=== PATIENT | male | born 1970 | race American Indian/Alaskan Native ===

== ENCOUNTER 2020-01-01 08:44 | Day surgery (SDC) | payer OTHER ==
[2020-01-01] MEDS ORDERED: ACETAMINOPHEN 500 MG TAB PO NR (09:39)
[2020-01-01] MEDS ORDERED: ONDANSETRON 4 MG/2 ML INJ IV PRN (09:39)
[2020-01-01] MEDS ORDERED: MAGNESIUM OXIDE 400 MG TAB PO NR (09:39)
[2020-01-01] MEDS ORDERED: HYDROmorphone 1 MG/1 ML INJ IV PRN (09:39)
[2020-01-01] MEDS ORDERED: CELECOXIB 200 MG CAP PO NR (10:00)
[2020-01-01] MEDS ORDERED: MIDAZOLAM 2 MG/2 ML INJ IV NR (10:00)
[2020-01-01] MEDS ORDERED: GABAPENTIN 300 MG CAP PO NR (10:00)
[2020-01-01] MEDS ORDERED: LACTATED RINGERS 1,000 ML IV SCH (10:00)
[2020-01-01] MEDS ORDERED: ceFAZolin/STERILE WATER 2 GM/20 ML SYRINGE IV NR (10:00)
[2020-01-01] MEDS ORDERED: BUPIVACAINE/PF (0.25%) 2.5 MG/ML 30 ML VIAL INFILTRATI ONE ×2 (12:25→13:11)
[2020-01-01] MEDS ORDERED: LIDOCAINE (1%) 10 MG/1 ML VIAL 20 ML MDV ONE (12:25)
[2020-01-01] MEDS ORDERED: fentaNYL 100 MCG/2 ML INJ ONE ×2 (12:48→13:57)
[2020-01-01] MEDS ORDERED: SUCCINYLCHOLINE CHLORIDE 200 MG/10 ML INJ MDV ONE (12:48)
[2020-01-01] MEDS ORDERED: propofoL 200 MG/20 ML VIAL IV ONE (12:48)
[2020-01-01] MEDS ORDERED: ONDANSETRON 4 MG/2 ML INJ ONE (12:48)
[2020-01-01] MEDS ORDERED: PHENYLEPHRINE/NS 1,000 MCG/10 ML SYRINGE (OR USE) IV ONE (12:48)
[2020-01-01] MEDS ORDERED: dexAMETHasone 20 MG/5 ML VIAL ONE (12:48)
[2020-01-01] MEDS ORDERED: GLYCOPYRROLATE 0.4 MG/2 ML INJ ONE (12:48)
[2020-01-01] MEDS ORDERED: ROCURONIUM 50 MG/5 ML INJ IV ONE (12:48)
[2020-01-01] MEDS ORDERED: LIDOCAINE MPF (2%) 20 MG/1 ML VIAL 5 ML ONE (12:48)
[2020-01-01] MEDS ORDERED: NEOSTIGMINE 10MG/10 ML INJ MDV ONE (12:48)
[2020-01-01] MEDS ORDERED: SODIUM CHLORIDE 0.9% IRR 1,500 ML BOTTLE IR ONE (13:12)
[2020-01-01] MEDS ORDERED: LIDOCAINE (1%) 10 MG/1 ML VIAL 20 ML MDV INFILTRATI ONE (13:12)
--- NOTE | 2020-01-01 14:18 | Short Stay Summary ---
Short Stay Documentation Date of service: 01/01/20 - History Principal diagnosis: umblical hernia H&P: obtained from office - Allergies and Medications Current Medications: Allergies No Known Allergies Allergy (Verified 12/26/19 12:40) Home Medications Medication Instructions Recorded Confirmed Last Taken Type No Known Home Medications [No 12/26/19 12/26/19 Unknown History Reported Home Medications] Active Medications Acetaminophen (Tylenol) 1,000 mg PO ONCE NR Stop: 01/01/20 18:00 Last Admin: 01/01/20 10:10 Dose: 1,000 mg Documented by: Celecoxib (Celebrex) 400 mg PO PREOP NR Stop: 01/01/20 23:00 Last Admin: 01/01/20 10:10 Dose: 400 mg Documented by: Gabapentin (Gabapentin) 600 mg PO PREOP NR Stop: 01/01/20 23:00 Last Admin: 01/01/20 10:10 Dose: 600 mg Documented by: Hydromorphone HCl (Dilaudid) 0.25 mg IV Q10MIN PRN PRN Reason: Pain, Moderate (4-6) Stop: 01/01/20 23:00 Hydromorphone HCl (Dilaudid) 0.5 mg IV Q10MIN PRN PRN Reason: Pain , Severe (7-10) Stop: 01/01/20 23:00 Lactated Ringer's (Lactated Ringers) 1,000 mls @ 125 mls/hr IV DIRECT NICOLAS Last Admin: 01/01/20 10:15 Dose: 125 mls/hr Documented by: Magnesium Oxide (Mag-Ox) 400 mg PO ONCE NR Stop: 01/01/20 22:00 Last Admin: 01/01/20 10:10 Dose: 400 mg Documented by: Midazolam HCl (Versed) 2 mg IV PREOP NR Stop: 01/01/20 23:59 Last Admin: 01/01/20 10:16 Dose: 2 mg Documented by: Ondansetron HCl (Zofran) 4 mg IV ONCE PRN PRN Reason: Nausea And Vomiting Stop: 01/01/20 22:00 - Brief post op/procedure progress note Date of procedure: 01/01/20 Pre-op diagnosis: umbilical hernia Post-op diagnosis: same Procedure: open umbilical hernia repair with mesh Anesthesia: GETA, local Findings: Moderate amount of incarcerated preperitoneal fat in 1 cm hernia defect Surgeon: ANI GIVENS Estimated blood loss: minimal Pathology: none Condition: stable - Hospital course Hospital course: Pt observed in PACU and discharged to home in stable condition. - Disposition Condition at discharge: Good Short Stay Discharge Plan Activity: other (no heavy lifting) Diet: regular Wound: open to air, per your surgeon's advice Additional Instructions: Ok to remove abdominal binder when showering and sleeping. See additional printed discharge instructions. Follow up with: STEVE KIRKPATRICK MD [Primary Care Provider] - 7 Days ANI GIVENS DO [Staff Physician] - 14 Days Prescriptions: Ibuprofen [Motrin 800 MG tab] 800 mg PO Q8HR #30 tablet HYDROcodone/APAP 5-325 [Lititz 5/325] 1 each PO Q6HR PRN #20 tablet PRN Reason: Pain , Severe (7-10)
[2020-01-01] MEDS ORDERED: HYDROcodone/ACETAMINOPHEN 5-325 MG TAB PO PRN (14:51)
[2020-01-01] MEDS: HYDROmorphone 1 MG/1 ML INJ IV PRN ×2 (15:04→15:14)
[2020-01-01 15:14] VITALS: BP 138/88
--- NOTE | 2020-01-01 15:15 | Anesthesia Day of Surgery ---
Anesthesia Day of Surgery - Day of Surgery Patient Examined: Yes ([id number]) Patient H&P Reviewed: Yes Patient is NPO: Yes
--- NOTE | 2020-01-01 15:16 | Anesthesia Consultation ---
Anesthesia Consult and Med Hx Date of service: 01/01/20 - Airway Anesthetic Teeth Evaluation: Good - Pre-Operative Health Status ASA Pre-Surgery Classification: ASA1 Proposed Anesthetic Plan: General - Pulmonary Hx Smoking: No Hx Sleep Apnea: No (HAO PRE SCREEN LOW RISK.) - Cardiovascular System Hx Hypertension: No - Central Nervous System Hx Psychiatric Problems: No - Other Systems Hx Cancer: No - Additional Comments Anesthesia Medical History Comments: Done at 0932
--- NOTE | 2020-01-01 15:16 | Post Anesthesia Evaluation ---
- Post Anesthesia Evaluation Patient Participated: Yes Airway Patent: Yes Stable Respiratory Function: Yes Nausea/Vomiting: No Temp > 96.8F: Yes Pain Manageable: Yes Adequeate Hydration: Yes Anesthesia Complications: No Block Receding Appropriately: Not Applicable Patient on Ventilator: No
--- NOTE | 2020-01-02 10:16 | Operative Report ---
Operative Report Operative Report: Date of procedure: 01/01/20 Pre-op diagnosis: umbilical hernia Post-op diagnosis: same Procedure: open umbilical hernia repair with mesh Anesthesia: ELLENA, local Findings: Moderate amount of incarcerated preperitoneal fat in 1 cm hernia defect Surgeon: ANI GIVENS Estimated blood loss: minimal Pathology: none Condition: stable Hospital course: Pt observed in PACU and discharged to home in stable condition. HPI indication: Patient is a 49-year-old male who presented to the surgery clinic with an umbilical hernia. The area was painful at times. On physical exam the hernia was partially reducible. It was recommended patient undergo umbilical hernia repair. As the defect was very small, an open repair was recommended. All risk, benefits, alternatives to surgery discussed with patient questions answered. Consent was obtained for open umbilical hernia repair possible mesh. Procedure in detail: Patient was identified in the preoperative area, taken back to the operating room and placed on the operating room table in supine position. After anesthesia was induced the abdomen was prepped and draped in usual sterile fashion timeout performed. Local anesthetic was infiltrated to the skin at the intended incision site. An inverted semilunar incision was made at the superior aspect of the umbilicus using a 15 blade. Dissection was carried down through skin and subcutaneous tissue using Bovie electrocautery until the hernia was encountered. The hernia sac and its contents were circumferentially dissected free from the surrounding tissue using a hemostat and electrocautery. The hernia sac was very thin and chronically scarred to the underside of the umbilicus. The fascia was identified and freed of overlying tissue circumferentially. The fascial defect was less than 1 cm containing a moderate amount of preperitoneal fat which was incarcerated in the hernia. The preperitoneal fat was reduced and the preperitoneal space was bluntly dissected in order to make space for insertion of mesh. Once enough space was created a 6.[address] mesh was inserted into the space and was ensured to be expanded completely and laying flat. This was sutured in place using 2-0 pds suture in 2 locations. The tabs were cut flush with the fascia. The subcutaneous tissue was irrigated and hemostasis was carefully ensured. The fascia was approximated using a figure of 8, 0 PDS suture. The umbilicus was t acked down to the fascia using a 3-0 Vicryl interrupted stitch. The deep dermal layer was closed using 3-0 Vicryl interrupted sutures. The skin was approximated using 4-0 Monocryl subcuticular running stitch and skin glue. After the glue was dry a 4 x 4 fluff gauze was placed in the umbilicus and secured with a Tegaderm. At the end of the case, all sponge, instrument, sharp counts were correct x2. The patient was awoken from anesthesia extubated and taken to PACU in stable condition.
== END 2020-01-01 15:45 | disposition home or self-care (01) ==
LOC: OR 08:44
PROVIDERS: ATTEND Surgery
DX: K42.0 Umbilical hernia with obstruction, without gangrene (principal); Z20.828 Contact with and (suspected) exposure to other viral communicable diseases; G43.909 Migraine, unspecified, not intractable, without status migrainosus; Z79.899 Other long term (current) drug therapy; Z98.890 Other specified postprocedural states
CPT/HCPCS: 49587; C1781; J0330; J0690; J1100; J1170; J2250; J2370; J2405; J2704; J2710; J3010; J7120; U0003